=== PATIENT | male | born 1990 | race Caucasian/White ===

== ENCOUNTER 2017-02-20 08:23 | Inpatient (IN) | payer BC ==
[2017-02-20 08:42] VITALS: BMI 27.3
--- NOTE | 2017-02-20 11:30 | HP ---
COWS - Scale Resting Pulse: 1= [place] 81-100 Sweatin=Flushed/Facial Moisture Restless Observation: 3= Extraneous Movement Pupil Size: 1= Pupils >than Normal Bone or Joint Aches: 2= Severe Diffuse Aches Runny Nose/ Eye Tearin= Runny Nose/Eyes GI Upset > 30mins: 0= None Tremor Observation: 1= Tremor [place], Not Seen Yawning Observation: 1= 1-2x During Session Anxiety or Irritability: 2=Irritable/Anxious Goose Flesh Skin: 0=Smooth Skin COWS Score: 15 Admission ROS S - [facility] Chief Complaint: Withdrawal sx. Allergies/Adverse Reactions: Allergies Allergy/AdvReac Type Severity Reaction Status Date / Time No Known Allergies Allergy Verified 02/20/17 09:40 History of Present Illness: 27 y/o man with hx. of opioid dependence is admitted for detox.Pt. claims that he was a binge drinker but stopped after an episode of intoxication for which he was in the psychiatric unit at [facility]. He was sent to rehab at [facility] in [place], but did not complete. Exam Limitations: No Limitations - Ebola screening Have you traveled outside of the country in the last 21 days: No Have you had contact with anyone from an Ebola affected area: No Have you been sick,other than usual withdrawal symptoms: No Do you have a fever: No - Review of Systems Constitutional: Diaphoresis EENT: reports: Nose Congestion Respiratory: reports: No Symptoms reported Cardiac: reports: No Symptoms Reported GI: reports: No Symptoms Reported : reports: No Symptoms Reported Musculoskeletal: reports: Joint Pain, Muscle Pain Neuro: reports: Headache Endocrine: reports: No Symptoms Reported Hematology: reports: No Symptoms Reported Psychiatric: reports: No Sypmtoms Reported Other Systems: Reviewed and Negative Patient History - Patient Medical History Hx Anemia: No Hx Asthma: No Hx Chronic Obstructive Pulmonary Disease (COPD): No Hx Cancer: No Hx Cardiac Disorders: No Hx Congestive Heart Failure: No Hx Hypertension: No Hx Hypercholesterolemia: No Hx Pacemaker: No HX Cerebrovascular Accident: No Hx Seizures: No Hx Diabetes: No Hx Gastrointestinal Disorders: No Hx Liver Disease: No Hx Genitourinary Disorders: No Hx Sexually Transmitted Disorders: No Hx Renal Disease (ESRD): No Hx Thyroid Disease: No Hx Human Immunodeficiency Virus (HIV): No Hx Hepatitis C: No Hx Depression: No Hx Suicide Attempt: No Hx Bipolar Disorder: No Hx Schizophrenia: No Other Medical History: Anxiety disorder was on Zoloft - Patient Surgical History Past Surgical History: No Hx Neurologic Surgery: No Hx Cataract Extraction: No Hx Cardiac Surgery: No Hx Lung Surgery: No Hx Breast Surgery: No Hx Breast Biopsy: No Hx Abdominal Surgery: No Hx Appendectomy: No Hx Cholecystectomy: No Hx Genitourinary Surgery: No Hx Section: No Hx Orthopedic Surgery: No Anesthesia Reaction: No - PPD History Previous Implant?: Yes Documented Results: Negative w/o proof Implanted On Prior [facility] Admission?: No PPD to be Administered?: Yes - Smoking Cessation Smoking history: Current every day smoker Have you smoked in the past 12 months: Yes Aproximately how many cigarettes per day: 12 Hx Chewing Tobacco Use: No Initiated information on smoking cessation: Yes 'Breaking Loose' booklet given: 02/20/17 - Substance & Tx. History Hx Alcohol Use: No Hx Substance Use: Yes Substance Use Type: Opiates Hx Substance Use Treatment: No - Substances Abused Roxycodone Route: Oral Frequency: Daily Amount used: 4-6 tabs. (30 mg.) Age of first use: 26 Date of Last Use: 02/18/17 Family Disease History - Family Disease History Family Disease History: Diabetes: Grandparent (Breast,Alcohol), Heart Disease: Grandparent, [place]: Grandparent Admission Physical Exam [facility] - Vital Signs Vital Signs: Vital Signs - 24 hr 02/20/17 08:41 Temperature 97.9 F Pulse Rate 86 Respiratory 18 Rate Blood Pressure 146/76 - Physical General Appearance: Yes: Sweating, Anxious HEENTM: Yes: Within Normal Limits Respiratory: Yes: Chest Non-Tender, Lungs Clear, Normal Breath Sounds Neck: Yes: Supple Breast: Yes: Breast Exam Deferred Cardiology: Yes: Regular Rhythm, Regular Rate, S1, S2 Abdominal: Yes: Normal Bowel Sounds, Non Tender, Soft Genitourinary: Yes: Within Normal Limits Back: Yes: Within Normal Limits Musculoskeletal: Yes: Muscle Pain Extremities: Yes: Within Normal Limits Neurological: Yes: Fully Oriented, Alert Integumentary: Yes: Diaphoresis Lymphatic: Yes: Within Normal Limits - Diagnostic (1) Opioid dependence with withdrawal Current Visit: Yes Status: Acute Cleared for Admission [facility] - Detox or Rehab [facility] Level of Care: Medically Managed Detox Regimen/Protocol: Methadone BHS Breath Alcohol Content Breath Alcohol Content: 0 Urine Drug Screen - Results Drug Screen Negative: No Urine Drug Screen Results: OPI-Opiates, OXY-Oxycodone
[2017-02-20] MEDS ORDERED: IBUPROFEN 400 MG TABLET (FP) PO PRN (11:40)
[2017-02-20] MEDS ORDERED: MAGNESIUM CITRATE 300 ML BOTTLE PO PRN (11:40)
[2017-02-20] MEDS ORDERED: diphenhydrAMINE HCL 50 MG CAPSULE PO PRN (11:40)
[2017-02-20] MEDS ORDERED: NICOTINE POLACRILEX 2 MG GUM BC PRN (11:40)
[2017-02-20] MEDS ORDERED: P-EPHED 60MG/TRIPROLIDI 2.5MG TABLET PO PRN (11:40)
[2017-02-20] MEDS ORDERED: MAG HYDROX/AL HYDROX/SIMETH 30 ML UNIT-DOSE CUP PO PRN (11:40)
[2017-02-20] MEDS ORDERED: ACETAMINOPHEN 325 MG TABLET (FP) PO PRN (11:40)
[2017-02-20] MEDS ORDERED: guaiFENesin/D-METHORPHAN HB 10 ML UNIT-DOSE CUPS PO PRN (11:40)
[2017-02-20] MEDS ORDERED: LOPERAMIDE HCL 2 MG CAPSULE PO PRN (11:40)
[2017-02-20] MEDS ORDERED: MAGNESIUM HYDROX 2400MG/30ML ORAL SUSPENSION 30 ML CUP PO PRN (11:40)
[2017-02-20] MEDS ORDERED: MENTHOL/PHENOL 1 EACH UD MM PRN (11:40)
[2017-02-20] MEDS ORDERED: METHADONE HCL 10 MG TABLET (FOR DETOX USE ONLY) PO ONE ×2 (12:06→23:00)
[2017-02-20] MEDS: NICOTINE 21 MG/24 HOURS TOPICAL PATCH TD SCH (12:23)
[2017-02-20] MEDS: diazePAM 5 MG TABLET PO PRN ×3 (12:27→22:50)
--- NOTE | 2017-02-20 14:32 | EKG ---
Test Reason : Blood Pressure : / mmHG Vent. Rate : 080 BPM Atrial Rate : 080 BPM P-R Int : 122 ms QRS Dur : 086 ms QT Int : 382 ms P-R-T Axes : 022 053 029 degrees QTc Int : 440 ms NORMAL SINUS RHYTHM NORMAL ECG NO PREVIOUS ECGS AVAILABLE Confirmed by OSWALD RAYO MD ([id number]) on 02/20/2017 2:32:21 PM Referred By: Eduin Brown Confirmed By:OSWALD RAYO MD
[2017-02-20 20:27] LABS: URINE APPEARANCE CLEAR; URINE BILIRUBIN NEGATIVE (NEGATIVE); URINE BLOOD NEGATIVE (NEGATIVE); URINE COLOR YELLOW; URINE GLUCOSE (UA) NEGATIVE (NEGATIVE); URINE KETONE NEGATIVE (NEGATIVE); URINE LEUK ESTERASE NEGATIVE (NEGATIVE); URINE NITRITE NEGATIVE (NEGATIVE); URINE PROTEIN NEGATIVE (NEGATIVE); URINE UROBILINOGEN NEGATIVE E.U./dl (0.2-1.0)
[2017-02-20] MEDS: THIAMINE HCL 100 MG TABLET (FP) PO SCH (22:50)
[2017-02-21] MEDS: diazePAM 5 MG TABLET PO PRN ×5 (05:13→23:30)
[2017-02-21 09:43] LABS: MCH 29.9 pg (25.7-33.7); MCHC 34.2 g/dl (32.0-35.9); MEAN CELL VOLUME 87.3 fl (80-96); MEAN PLT VOLUME 9.1 fl (7.5-11.1); PLATELET COUNT 262 K/MM3 (134-434); RDW 12.6 % (11.9-15.9); WHITE BLOOD COUNT 11.7 K/mm3 (4.0-10.0)
[2017-02-21] MEDS ORDERED: METHADONE HCL 10 MG TABLET (FOR DETOX USE ONLY) PO ONE (10:00)
[2017-02-21] MEDS: NICOTINE 21 MG/24 HOURS TOPICAL PATCH TD SCH (10:46)
[2017-02-21] MEDS: PRENATAL VITAMINS W/ FOLIC ACID TABLET (FP) PO SCH (10:46)
--- NOTE | 2017-02-21 11:41 | PN ---
BHS COWS - Scale Resting Pulse: 1= [place] 81-100 Sweatin= Chills/Flushing Restless Observation: 3= Extraneous Movement Pupil Size: 2= Moderately Dilated Bone or Joint Aches: 4=Acute Joint/Muscle Pain Runny Nose/ Eye Tearin= Nasal Congestion GI Upset > 30mins: 1= Stomach Cramp Tremor Observation of Outstretched Hands: 2= Slight Tremor Visible Yawning Observation: 1= 1-2x During Session Anxiety or Irritability: 2=Irritable/Anxious Goose Flesh Skin: 0=Smooth Skin COWS Score: 18 BHS Progress Note (SOAP) Subjective: ANXIETY,SWEATS,BACK/LEG ACHES. Objective: 02/21/17 11:40 Vital Signs 02/21/17 02/21/17 06:29 10:07 Temperature 96.5 F L 96.5 F L Pulse Rate 85 80 Respiratory 18 18 Rate Blood Pressure 130/82 125/81 Laboratory Last Values WBC 11.7 K/mm3 (4.0-10.0) H 02/21/17 06:00 RBC 4.97 M/mm3 (4.00-5.60) 02/21/17 06:00 Hgb 14.8 GM/dL (11.7-16.9) 02/21/17 06:00 Hct 43.4 % (35.4-49) 02/21/17 06:00 MCV 87.3 fl (80-96) 02/21/17 06:00 MCHC 34.2 g/dl (32.0-35.9) 02/21/17 06:00 RDW 12.6 % (11.9-15.9) 02/21/17 06:00 Plt Count 262 K/MM3 (134-434) 02/21/17 06:00 MPV 9.1 fl (7.5-11.1) 02/21/17 06:00 Urine Color Yellow 02/20/17 13:00 Urine Appearance Clear 02/20/17 13:00 Urine pH 6.0 (5.0-8.0) 02/20/17 13:00 Ur Specific [place] 1.026 (1.001-1.035) 02/20/17 13:00 Urine Protein Negative (NEGATIVE) 02/20/17 13:00 Urine Glucose (UA) Negative (NEGATIVE) 02/20/17 13:00 Urine Ketones Negative (NEGATIVE) 02/20/17 13:00 Urine Blood Negative (NEGATIVE) 02/20/17 13:00 Urine Nitrite Negative (NEGATIVE) 02/20/17 13:00 Urine Bilirubin Negative (NEGATIVE) 02/20/17 13:00 Urine Urobilinogen Negative E.U./dl (0.2-1.0) 02/20/17 13:00 Ur Leukocyte Esterase Negative (NEGATIVE) 02/20/17 13:00 RPR Titer Nonreactive (NONREACTIVE) 02/21/17 06:00 Assessment: 02/21/17 11:40 WITHDRAWAL SX Plan: CONTINUE DETOX INCREASE PO FLUIDS
[2017-02-21 11:49] LABS: ANION GAP 10 (8-16); CO2 28 mmol/L (21-32)
[2017-02-21 11:59] LABS: ALK PHOS 93 U/L (45-117); BILIRUBIN,TOTAL 0.5 mg/dL (0.2-1.0); CREATININE 0.9 mg/dL (0.7-1.3); GLUCOSE,RANDOM 73 mg/dL (74-106); SGOT/AST 23 U/L (15-37); SGPT/ALT 77 U/L (12-78); TOT PROT 6.8 g/dl (6.4-8.2)
[2017-02-21] MEDS: CYCLOBENZAPRINE HCL 10 MG TABLET (FP) PO SCH ×2 (13:24→22:27)
[2017-02-21] MEDS: hydrOXYzine PAMOATE 50 MG CAPSULE (FP) PO PRN (13:25)
[2017-02-21 14:12] LABS: URINE APPEARANCE CLEAR; URINE BILIRUBIN NEGATIVE (NEGATIVE); URINE BLOOD NEGATIVE (NEGATIVE); URINE COLOR LTYELLOW; URINE GLUCOSE (UA) NEGATIVE (NEGATIVE); URINE KETONE NEGATIVE (NEGATIVE); URINE LEUK ESTERASE NEGATIVE (NEGATIVE); URINE NITRITE NEGATIVE (NEGATIVE); URINE PROTEIN NEGATIVE (NEGATIVE); URINE UROBILINOGEN NEGATIVE E.U./dl (0.2-1.0)
--- NOTE | 2017-02-21 14:30 | CONSULT ---
[facility] Psychiatric Consult - Data Date of interview: 02/21/17 Admission source: [facility] Identifying data: First admission [facility] for this 27 y/o male seeking detox treatment for opioid dependence.Patient is single without children ,domiciled,unemployed and supported by relatives. Substance Abuse History: - Smoking Cessation. Smoking history: Current every day smoker. Have you smoked in the past 12 months: Yes. Aproximately how many cigarettes per day: 12. Hx Chewing Tobacco Use: No. Initiated information on smoking cessation: Yes. 'Breaking Loose' booklet given: 02/20/17. - Substance & Tx. History. Hx Alcohol Use: No. Hx Substance Use: Yes. Substance Use Type : Opiates. Hx Substance Use Treatment: No. - Substances Abused. Roxycodone. Route: Oral. Frequency: Daily. Amount used: 4-6 tabs. (30 mg.). Age of first use: 26. Date of Last Use: 02/18/17. Confirmed by patient. Medical History: Patient reports good physical health. Psychiatric History: One psychiatric hospitalization at [facility] 2016) due to agitation/erratic behavior in a context of drug/alcohol intoxication (self- report).Patient states that he is unaware of any psychiatric diagnosis with the exception of substance abuse." They did not diagnose me with anything." He remembers,however,that he was prescribed zoloft (did not take as recommended) .No OPD care for months.Mr Rowland argues that his issue is chronic anxiety and his expectation is to be on a benzodiazepine (klonopin). Physical/Sexual Abuse/Trauma History: Patient denies. Additional Comment: Urine Drug Screen Results: OPI-Opiates, OXY-Oxycodone.Noted. Mental Status Exam - Mental Status Exam Alert and Oriented to: Time, Place, Person Cognitive Function: Good Patient Appearance: Well Groomed Mood: Hopeful, Euthymic Affect: Normal Range Patient Behavior: Appropriate, Cooperative Speech Pattern: Clear Voice Loudness: Normal Thought Process: Goal Oriented Thought Disorder: Not Present Hallucinations: Denies Suicidal Ideation: Denies Insight/Judgement: Poor Sleep: Poorly Appetite: Good Muscle strength/Tone: Normal Gait/Station: Normal Psychiatric Findings - Problem List ([place] 1, 2,3) (1) Opioid dependence with withdrawal Current Visit: Yes Status: Acute (2) Nicotine dependence Current Visit: Yes Status: Acute (3) Substance induced mood disorder Current Visit: Yes Status: Acute (4) Insomnia Current Visit: Yes Status: Acute - Initial Treatment Plan Initial Treatment Plan: Psychoeducation.Detoxification.Ambien 10 mg po hs prn.Patient made aware of risk for parasomnias.Observation.
[2017-02-21] MEDS: ZOLPIDEM TARTRATE 10 MG TABLET (PARK CARE ONLY) PO PRN (22:27)
[2017-02-21] MEDS: THIAMINE HCL 100 MG TABLET (FP) PO SCH (22:27)
[2017-02-22] MEDS: CYCLOBENZAPRINE HCL 10 MG TABLET (FP) PO SCH ×3 (05:20→22:32)
[2017-02-22] MEDS: diazePAM 5 MG TABLET PO PRN ×4 (05:20→19:54)
[2017-02-22] MEDS ORDERED: METHADONE HCL 5 MG TABLET (FOR DETOX USE ONLY) PO ONE (10:00)
[2017-02-22] MEDS: PRENATAL VITAMINS W/ FOLIC ACID TABLET (FP) PO SCH (10:35)
[2017-02-22] MEDS: NICOTINE 21 MG/24 HOURS TOPICAL PATCH TD SCH (10:35)
--- NOTE | 2017-02-22 14:26 | PN ---
BHS COWS - Scale Resting Pulse: 2= [place] 101-120 Sweatin=Flushed/Facial Moisture Restless Observation: 1= Difficult to Sit Still Pupil Size: 0= Normal to Room Light Bone or Joint Aches: 2= Severe Diffuse Aches Runny Nose/ Eye Tearin= Nasal Congestion GI Upset > 30mins: 0= None Tremor Observation of Outstretched Hands: 2= Slight Tremor Visible Yawning Observation: 1= 1-2x During Session Anxiety or Irritability: 2=Irritable/Anxious Goose Flesh Skin: 0=Smooth Skin COWS Score: 13 BHS Progress Note (SOAP) Subjective: Interrupted Sleep, Sweating, Tremors, Body aches Objective: PT. A & O X 3, OBSERVED AMBULATING ON UNIT. 02/22/17 14:24 Vital Signs Temperature 96.5 F L 02/22/17 13:24 Pulse Rate 108 H 02/22/17 13:24 Respiratory Rate 20 02/22/17 13:24 Blood Pressure 140/83 02/22/17 13:24 O2 Sat by Pulse Oximetry (%) Laboratory Last Values WBC 11.7 K/mm3 (4.0-10.0) H 02/21/17 06:00 RBC 4.97 M/mm3 (4.00-5.60) 02/21/17 06:00 Hgb 14.8 GM/dL (11.7-16.9) 02/21/17 06:00 Hct 43.4 % (35.4-49) 02/21/17 06:00 MCV 87.3 fl (80-96) 02/21/17 06:00 MCHC 34.2 g/dl (32.0-35.9) 02/21/17 06:00 RDW 12.6 % (11.9-15.9) 02/21/17 06:00 Plt Count 262 K/MM3 (134-434) 02/21/17 06:00 MPV 9.1 fl (7.5-11.1) 02/21/17 06:00 Sodium 144 mmol/L (136-145) 02/21/17 06:00 Potassium 3.6 mmol/L (3.5-5.1) 02/21/17 06:00 Chloride 106 mmol/L (98-107) 02/21/17 06:00 Carbon Dioxide 28 mmol/L (21-32) 02/21/17 06:00 Anion Gap 10 (8-16) 02/21/17 06:00 BUN 9 mg/dL (7-18) 02/21/17 06:00 Creatinine 0.9 mg/dL (0.7-1.3) 02/21/17 06:00 Creat Clearance w eGFR > 60 (>60) 02/21/17 06:00 Random Glucose 73 mg/dL (74-106) L 02/21/17 06:00 Calcium 9.0 mg/dL (8.5-10.1) 02/21/17 06:00 Total Bilirubin 0.5 mg/dL (0.2-1.0) 02/21/17 06:00 AST 23 U/L (15-37) 02/21/17 06:00 ALT 77 U/L (12-78) 02/21/17 06:00 Alkaline Phosphatase 93 U/L (45-117) 02/21/17 06:00 Total Protein 6.8 g/dl (6.4-8.2) 02/21/17 06:00 Albumin 4.0 g/dl (3.4-5.0) 02/21/17 06:00 Urine Color Ltyellow 02/21/17 12:30 Urine Appearance Clear 02/21/17 12:30 Urine pH 5.0 (5.0-8.0) 02/21/17 12:30 Ur Specific [place] 1.017 (1.001-1.035) 02/21/17 12:30 Urine Protein Negative (NEGATIVE) 02/21/17 12:30 Urine Glucose (UA) Negative (NEGATIVE) 02/21/17 12:30 Urine Ketones Negative (NEGATIVE) 02/21/17 12:30 Urine Blood Negative (NEGATIVE) 02/21/17 12:30 Urine Nitrite Negative (NEGATIVE) 02/21/17 12:30 Urine Bilirubin Negative (NEGATIVE) 02/21/17 12:30 Urine Urobilinogen Negative E.U./dl (0.2-1.0) 02/21/17 12:30 Ur Leukocyte Esterase Negative (NEGATIVE) 02/21/17 12:30 RPR Titer Nonreactive (NONREACTIVE) 02/21/17 06:00 LABS NOTED. Assessment: 02/22/17 14:24 WITHDRAWAL SYMPTOMS. Plan: CONTINUE DETOX. ADVISED PATIENT TO FOLLOW-UP WITH [facility] / REHAB MEDICAL PROVIDER AFTER DISCHARGER FROM DETOX FOR GENERAL MEDICAL ASSESSMENT AND FOR ABNORMAL ADMISSION LAB VALUES.
[2017-02-22] MEDS: THIAMINE HCL 100 MG TABLET (FP) PO SCH (22:31)
[2017-02-22] MEDS: ZOLPIDEM TARTRATE 10 MG TABLET (PARK CARE ONLY) PO PRN (22:32)
[2017-02-23] MEDS: diazePAM 5 MG TABLET PO PRN ×3 (00:15→10:43)
[2017-02-23] MEDS: CYCLOBENZAPRINE HCL 10 MG TABLET (FP) PO SCH ×3 (05:42→22:21)
[2017-02-23] MEDS ORDERED: METHADONE HCL 5 MG TABLET (FOR DETOX USE ONLY) PO ONE (10:00)
[2017-02-23] MEDS: PRENATAL VITAMINS W/ FOLIC ACID TABLET (FP) PO SCH (10:40)
[2017-02-23] MEDS: hydrOXYzine PAMOATE 50 MG CAPSULE (FP) PO PRN ×3 (11:01→19:30)
[2017-02-23] MEDS: NICOTINE 21 MG/24 HOURS TOPICAL PATCH TD SCH (12:38)
--- NOTE | 2017-02-23 15:23 | PN ---
BHS Progress Note (SOAP) Subjective: Anxious, restless, pain in shoulders and legs, interrupted sleep Objective: 02/23/17 15:22 Last Vital Signs Temp Pulse Resp BP Pulse Ox 97 F L 120 H 19 133/85 02/23/17 13:48 02/23/17 13:48 02/23/17 13:48 02/23/17 13:48 Laboratory Tests 02/20/17 02/21/17 02/21/17 13:00 06:00 06:00 WBC 11.7 H RBC 4.97 Hgb 14.8 Hct 43.4 MCV 87.3 MCHC 34.2 RDW 12.6 Plt Count 262 MPV 9.1 Sodium 144 Potassium 3.6 Chloride 106 Carbon Dioxide 28 Anion Gap 10 BUN 9 Creatinine 0.9 Creat Clearance w eGFR > 60 Random Glucose 73 L Calcium 9.0 Total Bilirubin 0.5 AST 23 ALT 77 Alkaline Phosphatase 93 Total Protein 6.8 Albumin 4.0 Urine Color Yellow Urine Appearance Clear Urine pH 6.0 Ur Specific [place] 1.026 Urine Protein Negative Urine Glucose (UA) Negative Urine Ketones Negative Urine Blood Negative Urine Nitrite Negative Urine Bilirubin Negative Urine Urobilinogen Negative Ur Leukocyte Esterase Negative RPR Titer 02/21/17 02/21/17 06:00 12:30 WBC RBC Hgb Hct MCV MCHC RDW Plt Count MPV Sodium Potassium Chloride Carbon Dioxide Anion Gap BUN Creatinine Creat Clearance w eGFR Random Glucose Calcium Total Bilirubin AST ALT Alkaline Phosphatase Total Protein Albumin Urine Color Ltyellow Urine Appearance Clear Urine pH 5.0 Ur Specific [place] 1.017 Urine Protein Negative Urine Glucose (UA) Negative Urine Ketones Negative Urine Blood Negative Urine Nitrite Negative Urine Bilirubin Negative Urine Urobilinogen Negative Ur Leukocyte Esterase Negative RPR Titer Nonreactive Labs noted Assessment: 02/23/17 15:23 Withdrawal symptoms Plan: Continue detox
[2017-02-23] MEDS: ZOLPIDEM TARTRATE 10 MG TABLET (PARK CARE ONLY) PO PRN (22:21)
[2017-02-23] MEDS: THIAMINE HCL 100 MG TABLET (FP) PO SCH (22:21)
[2017-02-24] MEDS: hydrOXYzine PAMOATE 50 MG CAPSULE (FP) PO PRN ×5 (00:54→22:25)
[2017-02-24] MEDS: CYCLOBENZAPRINE HCL 10 MG TABLET (FP) PO SCH ×3 (05:52→22:24)
[2017-02-24] MEDS ORDERED: METHADONE HCL 10 MG TABLET (FOR DETOX USE ONLY) PO ONE (10:00)
[2017-02-24] MEDS: PRENATAL VITAMINS W/ FOLIC ACID TABLET (FP) PO SCH (10:36)
[2017-02-24] MEDS: NICOTINE 21 MG/24 HOURS TOPICAL PATCH TD SCH (10:36)
--- NOTE | 2017-02-24 11:35 | PN ---
BHS Progress Note (SOAP) Subjective: Sweating,interrupted sleep,restless Objective: 02/24/17 11:33 Vital Signs - 8 hr 02/24/17 02/24/17 06:28 09:46 Temperature 98.1 F 96 F L Pulse Rate 114 H 109 H Respiratory 18 20 Rate Blood Pressure 126/80 148/91 Laboratory Tests 02/20/17 02/21/17 02/21/17 13:00 06:00 06:00 WBC 11.7 H RBC 4.97 Hgb 14.8 Hct 43.4 MCV 87.3 MCHC 34.2 RDW 12.6 Plt Count 262 MPV 9.1 Sodium 144 Potassium 3.6 Chloride 106 Carbon Dioxide 28 Anion Gap 10 BUN 9 Creatinine 0.9 Creat Clearance w eGFR > 60 Random Glucose 73 L Calcium 9.0 Total Bilirubin 0.5 AST 23 ALT 77 Alkaline Phosphatase 93 Total Protein 6.8 Albumin 4.0 Urine Color Yellow Urine Appearance Clear Urine pH 6.0 Ur Specific [place] 1.026 Urine Protein Negative Urine Glucose (UA) Negative Urine Ketones Negative Urine Blood Negative Urine Nitrite Negative Urine Bilirubin Negative Urine Urobilinogen Negative Ur Leukocyte Esterase Negative RPR Titer 02/21/17 02/21/17 06:00 12:30 WBC RBC Hgb Hct MCV MCHC RDW Plt Count MPV Sodium Potassium Chloride Carbon Dioxide Anion Gap BUN Creatinine Creat Clearance w eGFR Random Glucose Calcium Total Bilirubin AST ALT Alkaline Phosphatase Total Protein Albumin Urine Color Ltyellow Urine Appearance Clear Urine pH 5.0 Ur Specific [place] 1.017 Urine Protein Negative Urine Glucose (UA) Negative Urine Ketones Negative Urine Blood Negative Urine Nitrite Negative Urine Bilirubin Negative Urine Urobilinogen Negative Ur Leukocyte Esterase Negative RPR Titer Nonreactive labs noted Assessment: 02/24/17 11:34 Laboratory Last Values Withdrawal sx. Plan: Continue detox
[2017-02-24] MEDS ORDERED: ZOLPIDEM TARTRATE 5 MG TABLET PO PRN (18:57)
[2017-02-24] MEDS: THIAMINE HCL 100 MG TABLET (FP) PO SCH (22:24)
[2017-02-25] MEDS: CYCLOBENZAPRINE HCL 10 MG TABLET (FP) PO SCH (05:34)
[2017-02-25] MEDS ORDERED: METHADONE HCL 5 MG TABLET (FOR DETOX USE ONLY) PO ONE (06:00)
[2017-02-25 06:12] VITALS: BP 130/82; PULSE 111; TEMP 97.7
[2017-02-25] MEDS: hydrOXYzine PAMOATE 50 MG CAPSULE (FP) PO PRN (07:00)
--- NOTE | 2017-02-25 09:11 | DS ---
[facility] Detox Discharge Summary Admission Date: 02/20/17 Discharge Date: 02/25/17 - History Present History: Opioid Dependence Pertinent Past History: Insomnia - Physical Exam Results Vital Signs: Vital Signs Temperature 97.7 F 02/25/17 06:12 Pulse Rate 111 H 02/25/17 06:12 Respiratory Rate 18 02/25/17 06:12 Blood Pressure 130/82 02/25/17 06:12 O2 Sat by Pulse Oximetry (%) Pertinent Admission Physical Exam Findings: Withdrawal sx. Laboratory Last Values WBC 11.7 K/mm3 (4.0-10.0) H 02/21/17 06:00 RBC 4.97 M/mm3 (4.00-5.60) 02/21/17 06:00 Hgb 14.8 GM/dL (11.7-16.9) 02/21/17 06:00 Hct 43.4 % (35.4-49) 02/21/17 06:00 MCV 87.3 fl (80-96) 02/21/17 06:00 MCHC 34.2 g/dl (32.0-35.9) 02/21/17 06:00 RDW 12.6 % (11.9-15.9) 02/21/17 06:00 Plt Count 262 K/MM3 (134-434) 02/21/17 06:00 MPV 9.1 fl (7.5-11.1) 02/21/17 06:00 Sodium 144 mmol/L (136-145) 02/21/17 06:00 Potassium 3.6 mmol/L (3.5-5.1) 02/21/17 06:00 Chloride 106 mmol/L (98-107) 02/21/17 06:00 Carbon Dioxide 28 mmol/L (21-32) 02/21/17 06:00 Anion Gap 10 (8-16) 02/21/17 06:00 BUN 9 mg/dL (7-18) 02/21/17 06:00 Creatinine 0.9 mg/dL (0.7-1.3) 02/21/17 06:00 Creat Clearance w eGFR > 60 (>60) 02/21/17 06:00 Random Glucose 73 mg/dL (74-106) L 02/21/17 06:00 Calcium 9.0 mg/dL (8.5-10.1) 02/21/17 06:00 Total Bilirubin 0.5 mg/dL (0.2-1.0) 02/21/17 06:00 AST 23 U/L (15-37) 02/21/17 06:00 ALT 77 U/L (12-78) 02/21/17 06:00 Alkaline Phosphatase 93 U/L (45-117) 02/21/17 06:00 Total Protein 6.8 g/dl (6.4-8.2) 02/21/17 06:00 Albumin 4.0 g/dl (3.4-5.0) 02/21/17 06:00 Urine Color Ltyellow 02/21/17 12:30 Urine Appearance Clear 02/21/17 12:30 Urine pH 5.0 (5.0-8.0) 02/21/17 12:30 Ur Specific [place] 1.017 (1.001-1.035) 02/21/17 12:30 Urine Protein Negative (NEGATIVE) 02/21/17 12:30 Urine Glucose (UA) Negative (NEGATIVE) 02/21/17 12:30 Urine Ketones Negative (NEGATIVE) 02/21/17 12:30 Urine Blood Negative (NEGATIVE) 02/21/17 12:30 Urine Nitrite Negative (NEGATIVE) 02/21/17 12:30 Urine Bilirubin Negative (NEGATIVE) 02/21/17 12:30 Urine Urobilinogen Negative E.U./dl (0.2-1.0) 02/21/17 12:30 Ur Leukocyte Esterase Negative (NEGATIVE) 02/21/17 12:30 RPR Titer Nonreactive (NONREACTIVE) 02/21/17 06:00 labs noted - Treatment Hospital Course: Detox Protocol Followed, Detoxed Safely, Responded well, Discharged Condition Good, Rehab Referral Accepted Patient has Accepted a Rehab Referral to: [facility] - Medication Discharge Medications: Ambulatory Orders Sertraline HCl [Zoloft -] 100 mg PO DAILY 02/20/17 - Diagnosis (1) Opioid dependence with withdrawal Status: Acute (2) Insomnia Status: Acute (3) Nicotine dependence Status: Acute (4) Substance induced mood disorder Status: Acute - AMA Did Patient Leave Against Medical Advice: No
== END 2017-02-25 07:00 | disposition home or self-care (01) | DRG 897 ==
LOC: YASAS 08:23 → Y3N 11:17
PROVIDERS: ADMIT Internal Medicine; ATTEND Internal Medicine
PROC: HZ2ZZZZ Detoxification Services for Substance Abuse Treatment (ICD-10-PCS; principal; 2017-02-25)
DX: F11.23 Opioid dependence with withdrawal (principal); F17.210 Nicotine dependence, cigarettes, uncomplicated; F19.24 Other psychoactive substance dependence with psychoactive substance-induced mood disorder; G47.00 Insomnia, unspecified
CPT/HCPCS: 36415; 80053; 81003; 85027; 86593; 93005; 93010

== ENCOUNTER 2018-02-27 08:17 | Inpatient (IN) | payer OTHER ==
[2018-02-27 10:28] VITALS: BMI 25.9
--- NOTE | 2018-02-27 10:59 | HP ---
COWS - Scale Resting Pulse: 1= [place] 81-100 Sweatin= Beads of Sweat on Face Restless Observation: 1= Difficult to Sit Still Pupil Size: 0= Normal to Room Light Bone or Joint Aches: 2= Severe Diffuse Aches Runny Nose/ Eye Tearin= Runny Nose/Eyes GI Upset > 30mins: 2= Nausea/Diarrhea Tremor Observation: 2= Slight Tremor Visible Yawning Observation: 1= 1-2x During Session Anxiety or Irritability: 2=Irritable/Anxious Goose Flesh Skin: 0=Smooth Skin COWS Score: 16 Admission [facility] Chief Complaint: Pt presents with opiod withdrawal symptoms. Allergies/Adverse Reactions: Allergies Allergy/AdvReac Type Severity Reaction Status Date / Time No Known Allergies Allergy Verified 02/27/18 10:36 History of Present Illness: Patient presents with opiod withdrawal symptoms. Uses Roxanol orally/ intranasal. Last dose of Roxanol on 02/24/18. Pt began having withdrawal symptoms 2 days ago and smoke marajuana to help decrease anxiety/irritability. Has history of Detox at [facility] in 01/2017. Pt completed rehab and was sober x 6 months. Pt relapsed 3 months ago. Denies any suicidal attempts/ideation. Also denies history of seizures and overdose. Exam Limitations: No Limitations - Ebola screening Have you traveled outside of the country in the last 21 days: No Have you had contact with anyone from an Ebola affected area: No Have you been sick,other than usual withdrawal symptoms: No - Review of Systems Constitutional: Loss of Appetite, Night Sweats, Changes in sleep EENT: reports: Nose Congestion Respiratory: reports: No Symptoms reported Cardiac: reports: Chest Tightness GI: reports: Diarrhea, Nausea, Poor Fluid Intake, Abdominal cramping : reports: No Symptoms Reported Musculoskeletal: reports: Back Pain, Muscle Pain Integumentary: reports: Flushing, Sweating Neuro: reports: Headache, Tremors Endocrine: reports: Flushing Hematology: reports: No Symptoms Reported Psychiatric: reports: Orientated x3, Anxious, Depressed Patient History - Patient Medical History Hx Anemia: No Hx Asthma: No Hx Chronic Obstructive Pulmonary Disease (COPD): No Hx Cancer: No Hx Cardiac Disorders: No Hx Congestive Heart Failure: No Hx Hypertension: No Hx Hypercholesterolemia: No Hx Pacemaker: No HX Cerebrovascular Accident: No Hx Seizures: No Hx Dementia: No Hx Diabetes: No Hx Gastrointestinal Disorders: No Hx Liver Disease: No Hx Genitourinary Disorders: No Hx Sexually Transmitted Disorders: No Hx Renal Disease (ESRD): No Hx Thyroid Disease: No Hx Human Immunodeficiency Virus (HIV): No Hx Hepatitis C: No Hx Depression: Yes Hx Suicide Attempt: No (denies suicidal ideation) Hx Bipolar Disorder: No Hx Schizophrenia: No - Patient Surgical History Past Surgical History: No Hx Neurologic Surgery: No Hx Cataract Extraction: No Hx Cardiac Surgery: No Hx Lung Surgery: No Hx Breast Surgery: No Hx Breast Biopsy: No Hx Abdominal Surgery: No Hx Appendectomy: No Hx Cholecystectomy: No Hx Genitourinary Surgery: No Hx Section: No Hx Orthopedic Surgery: No Anesthesia Reaction: No - PPD History Previous Implant?: Yes Documented Results: Negative w/proof Implanted On Prior [facility] Admission?: Yes Date: 02/22/17 Results: 0 MM - Smoking Cessation Smoking history: Current every day smoker Have you smoked in the past 12 months: Yes Aproximately how many cigarettes per day: 12 Hx Chewing Tobacco Use: No Initiated information on smoking cessation: Yes 'Breaking Loose' booklet given: 02/27/18 - Substance & Tx. History Hx Alcohol Use: Yes (social on weekends) Hx Substance Use: Yes Substance Use Type: Marijuana, Opiates Hx Substance Use Treatment: Yes - Substances Abused Marijuana/Hashish Route: Smoking Frequency: 1-3 times last 30 days Amount used: 1 JOINT Age of first use: 20 Date of Last Use: 02/26/18 ROXYCODONE Route: Oral Frequency: Daily Amount used: 4 (30MG PILLS) Age of first use: 27 Date of Last Use: 02/25/18 Family Disease History - Family Disease History Family Disease History: Diabetes: Grandparent (Breast,Alcohol), Heart Disease: Grandparent, CA: Grandparent Admission Physical Exam BHS - Vital Signs Vital Signs: Vital Signs - 24 hr 02/27/18 10:24 Temperature 98.7 F Pulse Rate 89 Respiratory 20 Rate Blood Pressure 111/70 - Physical General Appearance: Yes: Mild Distress, Tremorous, Irritable, Sweating, Anxious HEENTM: Yes: EOMI, Hearing grossly Normal, Normal ENT Inspection, Normocephalic , Normal Voice, DAIANA, Nasal Congestion Respiratory: Yes: Within Normal Limits, Chest Non-Tender, Lungs Clear, Normal Breath Sounds, No Respiratory Distress Neck: Yes: Within Normal Limits, No masses,lesions,Nodules, Supple Breast: Yes: Breast Exam Deferred Cardiology: Yes: Within Normal Limits, Regular Rhythm, Regular Rate, S1, S2 Abdominal: Yes: Within Normal Limits, Normal Bowel Sounds, Non Tender, Flat, Soft Genitourinary: Yes: Within Normal Limits Back: Yes: Within Normal Limits, Muscle Spasm Musculoskeletal: Yes: Gait Steady, Back pain, Muscle Pain Extremities: Yes: Within Normal Limits, Normal Inspection 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 NML intact, Fully Oriented, Alert, Depressed Affect Integumentary: Yes: Moist Lymphatic: Yes: Within Normal Limits - Diagnostic (1) Depressed affect Current Visit: Yes Status: Acute (2) Anxiety Current Visit: Yes Status: Acute (3) Marijuana use Current Visit: Yes Status: Acute (4) Opioid dependence with withdrawal Current Visit: Yes Status: Acute (5) Nicotine dependence Current Visit: Yes Status: Acute Qualifiers: Substance use status: unspecified nicotine-induced disorder Cleared for Admission [facility] - Detox or Rehab [facility] Level of Care: Medically Managed Detox Regimen/Protocol: Methadone [facility] Breath Alcohol Content Breath Alcohol Content: 0 Urine Drug Screen - Results Drug Screen Negative: No Urine Drug Screen Results: THC-Marijuana, OXY-Oxycodone Inpatient Rehab Admission - Initial Determination Are CD services needed?: Yes Free of communicable disease: Yes Not in need of hospitalization: Yes - Rehab Admission Criteria Previous failed treatment: Yes Poor recovery environment: Yes Comorbidities: Yes Lacks judgement: Yes
[2018-02-27] MEDS ORDERED: LOPERAMIDE HCL 2 MG CAPSULE PO PRN (11:02)
[2018-02-27] MEDS ORDERED: MAGNESIUM CITRATE 300 ML BOTTLE PO PRN (11:02)
[2018-02-27] MEDS ORDERED: NICOTINE POLACRILEX 2 MG GUM BC PRN (11:02)
[2018-02-27] MEDS ORDERED: P-EPHED 60MG/TRIPROLIDI 2.5MG TABLET PO PRN (11:02)
[2018-02-27] MEDS ORDERED: guaiFENesin/D-METHORPHAN HB 10 ML UNIT-DOSE CUPS PO PRN (11:02)
[2018-02-27] MEDS ORDERED: MAGNESIUM HYDROX 2400MG/30ML ORAL SUSPENSION 30 ML CUP PO PRN (11:02)
[2018-02-27] MEDS ORDERED: MAG HYDROX/AL HYDROX/SIMETH 30 ML UNIT-DOSE CUP PO PRN (11:02)
[2018-02-27] MEDS ORDERED: ACETAMINOPHEN 325 MG TABLET (FP) PO PRN (11:02)
[2018-02-27] MEDS ORDERED: MENTHOL/PHENOL 1 EACH UD MM PRN (11:02)
[2018-02-27] MEDS ORDERED: METHADONE HCL 10 MG TABLET (FOR DETOX USE ONLY) PO ONE ×2 (12:55→23:00)
[2018-02-27] MEDS: diazePAM 5 MG TABLET PO PRN ×3 (14:55→23:08)
[2018-02-27] MEDS: hydrOXYzine PAMOATE 50 MG CAPSULE (FP) PO PRN (16:33)
[2018-02-27] MEDS: IBUPROFEN 400 MG TABLET (FP) PO PRN (16:33)
--- NOTE | 2018-02-27 16:38 | CONSULT ---
[facility] Psychiatric Consult - Data Date of interview: 02/27/18 Admission source: [facility] Identifying data: Pt. is a 28 year old single male, without kids, employed at the [employer], and currently living with grandmother. This is patient' s first admission to [facility]. Pt. admitted to opioid dependence. Substance Abuse History: Following information confirmed with Mr. Rowland: Smoking Cessation. Smoking history: Current every day smoker. Have you smoked in the past 12 months: Yes. Aproximately how many cigarettes per day: 12. Hx Chewing Tobacco Use: No. Initiated information on smoking cessation: Yes. ' Breaking Loose' booklet given: 02/27/18. - Substance & Tx. History. Hx Alcohol Use: Yes (social on weekends). Hx Substance Use: Yes. Substance Use Type: Marijuana, Opiates. Hx Substance Use Treatment: Yes. - Substances Abused. Marijuana/Hashish. Route: Smoking. Frequency: 1-3 times last 30 days. Amount used: 1 JOINT. Age of first use: 20. Date of Last Use: . ROXYCODONE. Route: Oral. Frequency: Daily. Amount used: 4 (30MG PILLS ). Age of first use: 27. Date of Last Use: 02/25/18 Medical History: Denies. Psychiatric History: Patient's first contact with a psychiatrist was in 2014, was diagnosed with anxiety disorder and prescribed prozac and klonopin. Pt. was nonadherent to prozac after abusing the klonopin. Approximately 3 months after his first psychiatric contact patient was then admitted to [facility] psychiatric unit for exhibiting bizarre behavior which patient states was due to alcohol intoxication. In November of 2017 patient was receiving outpatient rehab psychiatric care from [facility] and was prescribed Zoloft 100mg and Seroquel 25TID. Pt. was nonadherent after discharge due to relapse. Pt. denies h /o suicide attempt. Pt. currently denies suicidal and homicidal ideation. Physical/Sexual Abuse/Trauma History: Denies. Mental Status Exam - Mental Status Exam Alert and Oriented to: Time, Place, Person Cognitive Function: Good Patient Appearance: Well Groomed Mood: Euthymic Affect: Mood Congruent Patient Behavior: Appropriate, Cooperative Speech Pattern: Appropriate Voice Loudness: Normal Thought Process: Goal Oriented Thought Disorder: Not Present Hallucinations: Denies Suicidal Ideation: Denies Homicidal Ideation: Denies Insight/Judgement: Poor Sleep: Poorly Appetite: Fair Muscle strength/Tone: Normal Gait/Station: Normal Psychiatric Findings - Problem List ([place] 1, 2,3) (1) Nicotine dependence Current Visit: Yes Status: Acute Qualifiers: Substance use status: unspecified nicotine-induced disorder (2) Opioid dependence with withdrawal Current Visit: Yes Status: Acute (3) Insomnia Current Visit: Yes Status: Acute (4) Substance induced mood disorder Current Visit: Yes Status: Acute - Initial Treatment Plan Initial Treatment Plan: Psychoeducation provided. Detoxification provided. Zoloft 50mg qhs + Seroquel 50mg qhs ordered. Benefits and side effects discussed. Verbal consent given. Will continue to monitor.
[2018-02-27] MEDS: SERTRALINE HCL 50 MG TABLET (FP) PO SCH (22:15)
[2018-02-27] MEDS: THIAMINE HCL 100 MG TABLET (FP) PO SCH (22:15)
[2018-02-27] MEDS: QUEtiapine FUMARATE 50 MG TABLET PO SCH (22:15)
[2018-02-27] MEDS: MELATONIN 5 MG TABLETS PO PRN (22:15)
[2018-02-28] MEDS ORDERED: METHADONE HCL 10 MG TABLET (FOR DETOX USE ONLY) PO ONE (10:00)
[2018-02-28] MEDS: PRENATAL VITAMINS W/ FOLIC ACID TABLET (FP) PO SCH (10:15)
[2018-02-28] MEDS: NICOTINE 21 MG/24 HOURS TOPICAL PATCH TD SCH (10:16)
[2018-02-28] MEDS: hydrOXYzine PAMOATE 50 MG CAPSULE (FP) PO PRN ×2 (10:17→14:30)
[2018-02-28] MEDS: diazePAM 5 MG TABLET PO PRN ×4 (10:20→22:11)
--- NOTE | 2018-02-28 10:39 | EKG ---
Test Reason : Blood Pressure : / mmHG Vent. Rate : 093 BPM Atrial Rate : 093 BPM P-R Int : 122 ms QRS Dur : 080 ms QT Int : 370 ms P-R-T Axes : 025 054 040 degrees QTc Int : 460 ms NORMAL SINUS RHYTHM NONSPECIFIC T WAVE ABNORMALITY PROLONGED QT ABNORMAL ECG WHEN COMPARED WITH ECG OF 20-FEB-2017 11:32, NONSPECIFIC T WAVE ABNORMALITY NOW EVIDENT IN LATERAL LEADS Confirmed by LOULOU SHORT, SUJIT ([id number]) on 02/28/2018 10:38:52 AM Referred By: Confirmed By:SUJIT JAMIL MD
[2018-02-28 11:18] LABS: URINE APPEARANCE CLEAR; URINE BILIRUBIN NEGATIVE (<2.0 mg/dL); URINE BLOOD NEGATIVE (NEGATIVE); URINE COLOR YELLOW; URINE GLUCOSE (UA) NEGATIVE (NEGATIVE); URINE KETONE NEGATIVE (NEGATIVE); URINE LEUK ESTERASE NEGATIVE (NEGATIVE); URINE NITRITE NEGATIVE (NEGATIVE); URINE PROTEIN NEGATIVE (NEGATIVE)
[2018-02-28 11:18] LABS: HEMATOCRIT 46.9 % (35.4-49); HEMOGLOBIN 16.4 GM/dL (11.7-16.9); MCH 30.2 pg (25.7-33.7); MCHC 34.9 g/dl (32.0-35.9); MEAN CELL VOLUME 86.8 fl (80-96); MEAN PLT VOLUME 8.6 fl (7.5-11.1); PLATELET COUNT 298 K/MM3 (134-434); RBC 5.41 M/mm3 (4.00-5.60); WHITE BLOOD COUNT 6.9 K/mm3 (4.0-10.0)
[2018-02-28 11:33] LABS: CHLORIDE 103 mmol/L (98-107); POTASSIUM 4.4 mmol/L (3.5-5.1); SODIUM 139 mmol/L (136-145)
[2018-02-28 11:55] LABS: ALBUMIN 4.4 g/dl (3.4-5.0); ANION GAP 8 (8-16); BILIRUBIN,TOTAL 0.8 mg/dL (0.2-1.0); BLOOD UREA NITROGEN 9 mg/dL (7-18); CALCIUM 9.7 mg/dL (8.5-10.1); CO2 28 mmol/L (21-32); GLUCOSE,RANDOM 126 mg/dL (74-106); SGOT/AST 16 U/L (15-37); SGPT/ALT 41 U/L (12-78); TOT PROT 7.7 g/dl (6.4-8.2)
[2018-02-28 12:43] LABS: SICKLE CELL SCREEN NEGATIVE (NEGATIVE)
--- NOTE | 2018-02-28 12:56 | PN ---
BHS COWS - Scale Resting Pulse: 0= [place] 80 or Below Sweatin=Flushed/Facial Moisture Restless Observation: 1= Difficult to Sit Still Pupil Size: 0= Normal to Room Light Bone or Joint Aches: 2= Severe Diffuse Aches Runny Nose/ Eye Tearin= Nasal Congestion GI Upset > 30mins: 2= Nausea/Diarrhea Tremor Observation of Outstretched Hands: 2= Slight Tremor Visible Yawning Observation: 1= 1-2x During Session Anxiety or Irritability: 1=Feels Anxious/Irritable Goose Flesh Skin: 3=Piloerection COWS Score: 15 BHS Progress Note (SOAP) Subjective: Tremors, sweats, irritability, sleep interruptions Objective: 02/28/18 12:55 Vital Signs 02/28/18 02/28/18 06:00 10:00 Temperature 97.5 F L 96.4 F L Pulse Rate 68 72 Respiratory 18 18 Rate Blood Pressure 135/77 140/78 Laboratory Last Values WBC 6.9 K/mm3 (4.0-10.0) D 02/28/18 06:00 RBC 5.41 M/mm3 (4.00-5.60) 02/28/18 06:00 Hgb 16.4 GM/dL (11.7-16.9) D 02/28/18 06:00 Hct 46.9 % (35.4-49) 02/28/18 06:00 MCV 86.8 fl (80-96) 02/28/18 06:00 MCH 30.2 pg (25.7-33.7) 02/28/18 06:00 MCHC 34.9 g/dl (32.0-35.9) 02/28/18 06:00 RDW 13.0 % (11.9-15.9) 02/28/18 06:00 Plt Count 298 K/MM3 (134-434) 02/28/18 06:00 MPV 8.6 fl (7.5-11.1) 02/28/18 06:00 Sickle Cell Screen Negative (NEGATIVE) 02/28/18 06:00 Sodium 139 mmol/L (136-145) 02/28/18 06:00 Potassium 4.4 mmol/L (3.5-5.1) D 02/28/18 06:00 Chloride 103 mmol/L (98-107) 02/28/18 06:00 Carbon Dioxide 28 mmol/L (21-32) 02/28/18 06:00 Anion Gap 8 (8-16) 02/28/18 06:00 BUN 9 mg/dL (7-18) 02/28/18 06:00 Creatinine 1.0 mg/dL (0.7-1.3) 02/28/18 06:00 Creat Clearance w eGFR > 60 (>60) 02/28/18 06:00 Random Glucose 126 mg/dL (74-106) H D 02/28/18 06:00 Calcium 9.7 mg/dL (8.5-10.1) 02/28/18 06:00 Total Bilirubin 0.8 mg/dL (0.2-1.0) D 02/28/18 06:00 AST 16 U/L (15-37) D 02/28/18 06:00 ALT 41 U/L (12-78) D 02/28/18 06:00 Total Protein 7.7 g/dl (6.4-8.2) 02/28/18 06:00 Albumin 4.4 g/dl (3.4-5.0) 02/28/18 06:00 Urine Color Yellow 02/28/18 08:00 Urine Appearance Clear 02/28/18 08:00 Urine pH 6.0 (5.0-8.0) 02/28/18 08:00 Ur Specific [place] 1.030 (1.001-1.035) 02/28/18 08:00 Urine Protein Negative (NEGATIVE) 02/28/18 08:00 Urine Glucose (UA) Negative (NEGATIVE) 02/28/18 08:00 Urine Ketones Negative (NEGATIVE) 02/28/18 08:00 Urine Blood Negative (NEGATIVE) 02/28/18 08:00 Urine Nitrite Negative (NEGATIVE) 02/28/18 08:00 Urine Bilirubin Negative (<2.0 mg/dL) 02/28/18 08:00 Urine Urobilinogen 2.0 mg/dL (0.2-1.0) 02/28/18 08:00 Ur Leukocyte Esterase Negative (NEGATIVE) 02/28/18 08:00 Labs noted Assessment: 02/28/18 12:56 Withdrawal sx Plan: Continue detox
[2018-02-28 15:20] LABS: ALK PHOS 116 U/L (45-117)
[2018-02-28] MEDS: SERTRALINE HCL 50 MG TABLET (FP) PO SCH (22:10)
[2018-02-28] MEDS: QUEtiapine FUMARATE 50 MG TABLET PO SCH (22:10)
[2018-02-28] MEDS: THIAMINE HCL 100 MG TABLET (FP) PO SCH (22:11)
[2018-02-28] MEDS: MELATONIN 5 MG TABLETS PO PRN (23:16)
[2018-03-01] MEDS: diazePAM 5 MG TABLET PO PRN ×5 (03:40→22:13)
[2018-03-01] MEDS: hydrOXYzine PAMOATE 50 MG CAPSULE (FP) PO PRN ×4 (07:42→20:09)
[2018-03-01] MEDS ORDERED: METHADONE HCL 5 MG TABLET (FOR DETOX USE ONLY) PO ONE (10:00)
[2018-03-01] MEDS: PRENATAL VITAMINS W/ FOLIC ACID TABLET (FP) PO SCH (10:15)
[2018-03-01] MEDS: NICOTINE 21 MG/24 HOURS TOPICAL PATCH TD SCH (10:15)
--- NOTE | 2018-03-01 11:45 | PN ---
BHS COWS - Scale Resting Pulse: 0= [place] 80 or Below Sweatin= Chills/Flushing Restless Observation: 1= Difficult to Sit Still Pupil Size: 1= Pupils >than Normal Bone or Joint Aches: 2= Severe Diffuse Aches Runny Nose/ Eye Tearin= Runny Nose/Eyes GI Upset > 30mins: 2= Nausea/Diarrhea Tremor Observation of Outstretched Hands: 2= Slight Tremor Visible Yawning Observation: 2= >3x During Session Anxiety or Irritability: 1=Feels Anxious/Irritable Goose Flesh Skin: 0=Smooth Skin COWS Score: 14 BHS Progress Note (SOAP) Subjective: sweat restlessness anxiety mild tremor poor sleep joint ache running nose Objective: 03/01/18 11:45 Vital Signs Temperature 96.4 F L 03/01/18 10:00 Pulse Rate 78 03/01/18 10:00 Respiratory Rate 18 03/01/18 10:00 Blood Pressure 137/66 03/01/18 10:00 O2 Sat by Pulse Oximetry (%) Laboratory Last Values WBC 6.9 K/mm3 (4.0-10.0) D 02/28/18 06:00 RBC 5.41 M/mm3 (4.00-5.60) 02/28/18 06:00 Hgb 16.4 GM/dL (11.7-16.9) D 02/28/18 06:00 Hct 46.9 % (35.4-49) 02/28/18 06:00 MCV 86.8 fl (80-96) 02/28/18 06:00 MCH 30.2 pg (25.7-33.7) 02/28/18 06:00 MCHC 34.9 g/dl (32.0-35.9) 02/28/18 06:00 RDW 13.0 % (11.9-15.9) 02/28/18 06:00 Plt Count 298 K/MM3 (134-434) 02/28/18 06:00 MPV 8.6 fl (7.5-11.1) 02/28/18 06:00 Sickle Cell Screen Negative (NEGATIVE) 02/28/18 06:00 Sodium 139 mmol/L (136-145) 02/28/18 06:00 Potassium 4.4 mmol/L (3.5-5.1) D 02/28/18 06:00 Chloride 103 mmol/L (98-107) 02/28/18 06:00 Carbon Dioxide 28 mmol/L (21-32) 02/28/18 06:00 Anion Gap 8 (8-16) 02/28/18 06:00 BUN 9 mg/dL (7-18) 02/28/18 06:00 Creatinine 1.0 mg/dL (0.7-1.3) 02/28/18 06:00 Creat Clearance w eGFR > 60 (>60) 02/28/18 06:00 Random Glucose 126 mg/dL (74-106) H D 02/28/18 06:00 Calcium 9.7 mg/dL (8.5-10.1) 02/28/18 06:00 Total Bilirubin 0.8 mg/dL (0.2-1.0) D 02/28/18 06:00 AST 16 U/L (15-37) D 02/28/18 06:00 ALT 41 U/L (12-78) D 02/28/18 06:00 Alkaline Phosphatase 116 U/L (45-117) D 02/28/18 06:00 Total Protein 7.7 g/dl (6.4-8.2) 02/28/18 06:00 Albumin 4.4 g/dl (3.4-5.0) 02/28/18 06:00 Urine Color Yellow 02/28/18 08:00 Urine Appearance Clear 02/28/18 08:00 Urine pH 6.0 (5.0-8.0) 02/28/18 08:00 Ur Specific [place] 1.030 (1.001-1.035) 02/28/18 08:00 Urine Protein Negative (NEGATIVE) 02/28/18 08:00 Urine Glucose (UA) Negative (NEGATIVE) 02/28/18 08:00 Urine Ketones Negative (NEGATIVE) 02/28/18 08:00 Urine Blood Negative (NEGATIVE) 02/28/18 08:00 Urine Nitrite Negative (NEGATIVE) 02/28/18 08:00 Urine Bilirubin Negative (<2.0 mg/dL) 02/28/18 08:00 Urine Urobilinogen 2.0 mg/dL (0.2-1.0) 02/28/18 08:00 Ur Leukocyte Esterase Negative (NEGATIVE) 02/28/18 08:00 RPR Titer Nonreactive (NONREACTIVE) 02/28/18 06:00 lab noted Assessment: 03/01/18 11:45 withdrawal sx Plan: continue detox
[2018-03-01] MEDS: SERTRALINE HCL 50 MG TABLET (FP) PO SCH (22:13)
[2018-03-01] MEDS: QUEtiapine FUMARATE 50 MG TABLET PO SCH (22:13)
[2018-03-01] MEDS: THIAMINE HCL 100 MG TABLET (FP) PO SCH (22:13)
[2018-03-01] MEDS: MELATONIN 5 MG TABLETS PO PRN (22:13)
[2018-03-02] MEDS: hydrOXYzine PAMOATE 50 MG CAPSULE (FP) PO PRN ×3 (00:06→20:44)
[2018-03-02] MEDS: diazePAM 5 MG TABLET PO PRN ×2 (05:13→10:14)
[2018-03-02] MEDS ORDERED: METHADONE HCL 5 MG TABLET (FOR DETOX USE ONLY) PO ONE (10:00)
[2018-03-02] MEDS: PRENATAL VITAMINS W/ FOLIC ACID TABLET (FP) PO SCH (10:14)
[2018-03-02] MEDS: NICOTINE 21 MG/24 HOURS TOPICAL PATCH TD SCH (10:15)
--- NOTE | 2018-03-02 10:44 | PN ---
BHS Progress Note (SOAP) Subjective: joint pain body ache mild headache Objective: 03/02/18 10:54 Vital Signs Temperature 98.2 F 03/02/18 10:06 Pulse Rate 79 03/02/18 10:06 Respiratory Rate 20 03/02/18 10:06 Blood Pressure 143/78 03/02/18 10:06 O2 Sat by Pulse Oximetry (%) Laboratory Last Values WBC 6.9 K/mm3 (4.0-10.0) D 02/28/18 06:00 RBC 5.41 M/mm3 (4.00-5.60) 02/28/18 06:00 Hgb 16.4 GM/dL (11.7-16.9) D 02/28/18 06:00 Hct 46.9 % (35.4-49) 02/28/18 06:00 MCV 86.8 fl (80-96) 02/28/18 06:00 MCH 30.2 pg (25.7-33.7) 02/28/18 06:00 MCHC 34.9 g/dl (32.0-35.9) 02/28/18 06:00 RDW 13.0 % (11.9-15.9) 02/28/18 06:00 Plt Count 298 K/MM3 (134-434) 02/28/18 06:00 MPV 8.6 fl (7.5-11.1) 02/28/18 06:00 Sickle Cell Screen Negative (NEGATIVE) 02/28/18 06:00 Sodium 139 mmol/L (136-145) 02/28/18 06:00 Potassium 4.4 mmol/L (3.5-5.1) D 02/28/18 06:00 Chloride 103 mmol/L (98-107) 02/28/18 06:00 Carbon Dioxide 28 mmol/L (21-32) 02/28/18 06:00 Anion Gap 8 (8-16) 02/28/18 06:00 BUN 9 mg/dL (7-18) 02/28/18 06:00 Creatinine 1.0 mg/dL (0.7-1.3) 02/28/18 06:00 Creat Clearance w eGFR > 60 (>60) 02/28/18 06:00 Random Glucose 126 mg/dL (74-106) H D 02/28/18 06:00 Calcium 9.7 mg/dL (8.5-10.1) 02/28/18 06:00 Total Bilirubin 0.8 mg/dL (0.2-1.0) D 02/28/18 06:00 AST 16 U/L (15-37) D 02/28/18 06:00 ALT 41 U/L (12-78) D 02/28/18 06:00 Alkaline Phosphatase 116 U/L (45-117) D 02/28/18 06:00 Total Protein 7.7 g/dl (6.4-8.2) 02/28/18 06:00 Albumin 4.4 g/dl (3.4-5.0) 02/28/18 06:00 Urine Color Yellow 02/28/18 08:00 Urine Appearance Clear 02/28/18 08:00 Urine pH 6.0 (5.0-8.0) 02/28/18 08:00 Ur Specific [place] 1.030 (1.001-1.035) 02/28/18 08:00 Urine Protein Negative (NEGATIVE) 02/28/18 08:00 Urine Glucose (UA) Negative (NEGATIVE) 02/28/18 08:00 Urine Ketones Negative (NEGATIVE) 02/28/18 08:00 Urine Blood Negative (NEGATIVE) 02/28/18 08:00 Urine Nitrite Negative (NEGATIVE) 02/28/18 08:00 Urine Bilirubin Negative (<2.0 mg/dL) 02/28/18 08:00 Urine Urobilinogen 2.0 mg/dL (0.2-1.0) 02/28/18 08:00 Ur Leukocyte Esterase Negative (NEGATIVE) 02/28/18 08:00 RPR Titer Nonreactive (NONREACTIVE) 02/28/18 06:00 lab noted Assessment: withdrawal sx Plan: continue detox
[2018-03-02] MEDS ORDERED: BACLOFEN 10 MG TABLET (FP) PO ONE (12:45)
[2018-03-02] MEDS ORDERED: HALOPERIDOL 5 MG TABLET (FP) PO STA (13:29)
[2018-03-02] MEDS ORDERED: HALOPERIDOL 1 MG TABLET (FP) PO ONE (13:30)
[2018-03-02] MEDS ORDERED: HALOPERIDOL 5 MG TABLET (FP) PO PRN (13:31)
--- NOTE | 2018-03-02 13:35 | PN ---
Psychiatric Progress Note Vital Signs: Vital Signs Period Temp Pulse Resp BP Sys/Perez Pulse Ox Last 24 Hr 97.3 F-98.2 F 78-97 18-20 119-156/66-92 Date of Session: 03/02/18 Chief Complaint:: Anxiety, Agitation HPI: As per nursing reports patients complanes for anxietya ndagitation, panic attacks and irritability, denies suicidal, homicidal ideation Current Medications: Active Medications Generic Name Dose Route Start Last Admin Trade Name Freq PRN Reason Stop Dose Admin Acetaminophen 650 mg 02/27/18 11:02 Tylenol - PO Q4H PRN FEVER Al Hydroxide/Mg Hydroxide 30 ml 02/27/18 11:02 03/01/18 14:51 Mylanta Oral Suspension - PO 30 ml Q6H PRN Administration DYSPEPSIA Baclofen 10 mg 03/02/18 12:45 Lioresal - PO 03/02/18 12:46 ONCE ONE Diphenhydramine HCl 50 mg 03/02/18 13:29 Benadryl - PO 03/02/18 13:30 ONCE STA Eucalyptus/Menthol/Phenol/Sorbitol 1 each 02/27/18 11:02 Cepastat Lozenge - MM Q4H PRN SORE THROAT Guaifenesin 10 ml 02/27/18 11:02 Robitussin Dm - PO Q6H PRN COUGH Haloperidol 1 mg 03/02/18 13:30 Haldol - PO 03/02/18 13:31 ONCE ONE Haloperidol 5 mg 03/02/18 13:31 Haldol - PO Q4HWA PRN AGITATION Hydroxyzine Pamoate 50 mg 02/27/18 11:02 03/02/18 12:00 Vistaril - PO 50 mg Q4H PRN Administration AGITATION Ibuprofen 400 mg 02/27/18 11:02 02/27/18 16:33 Motrin - PO 400 mg Q6H PRN Administration PAIN LEVEL 4-6 Loperamide HCl 4 mg 02/27/18 11:02 Imodium - PO Q6H PRN DIARRHEA Magnesium Citrate 300 ml 02/27/18 11:02 Citroma - PO Q48H PRN CONSTIPATION Magnesium Hydroxide 30 ml 02/27/18 11:02 Milk Of Magnesia - PO DAILY PRN CONSTIPATION Melatonin 5 mg 02/27/18 22:00 03/01/18 22:13 Melatonin PO 5 mg HS PRN Administration INSOMNIA Methadone HCl 5 mg 03/04/18 06:00 Dolophine - PO 03/04/18 06:01 ONCE@0600 ONE Methadone HCl 10 mg 03/03/18 10:00 Dolophine - PO 03/03/18 10:01 ONCE ONE Nicotine 21 mg 02/28/18 10:00 03/02/18 10:15 Nicoderm Patch - TD Not Given DAILY SUKHJINDER Nicotine Polacrilex 2 mg 02/27/18 11:02 Nicorette Gum - BC Q2H PRN NICOTINE REPLACEMENT RX Multivit/Folic Acid/Iron 1 tab 02/28/18 10:00 03/02/18 10:14 Vitamins (Sjr) - PO 1 tab DAILY SUKHJINDER Administration Pseudoephedrine/Triprolidine 1 combo 02/27/18 11:02 Actifed - PO TID PRN NASAL CONGESTION Quetiapine Fumarate 50 mg 02/27/18 22:00 03/01/18 22:13 Seroquel - PO 50 mg HS SUKHJINDER Administration Sertraline HCl 50 mg 02/27/18 22:00 03/01/18 22:13 Zoloft - PO 50 mg HS SUKHJINDER Administration Thiamine HCl 100 mg 02/27/18 22:00 03/01/18 22:13 Vitamin B1 - PO 100 mg HS SUKHJINDER Administration Provider note:: Chart revewed, patient evaluated, preoccupied with panic attacks mmanagement, asking for medication intervention. Haldol 5mg p[o stat. Bevadryl 50mg po stat. Haldol 1mg p[o prn q4 for anxiety Mental Status Exam - Mental Status Exam Alert and Oriented to: Person Cognitive Function: Fair Patient Appearance: Unkempt Mood: Anxious Affect: Mood Congruent Patient Behavior: Talkative, Cooperative Speech Pattern: Excessive Voice Loudness: Normal Thought Process: Circumstantial, Goal Oriented Thought Disorder: Being Controlled Hallucinations: Denies Suicidal Ideation: Denies Homicidal Ideation: Denies Insight/Judgement: Fair Sleep: Difficulty falling asleep Appetite: Fair Muscle strength/Tone: Normal Gait/Station: Normal Additional Comments: Haldol 5mg p[o stat. Bevadryl 50mg po stat. Haldol 1mg p[ o prn q4 for anxiety Psychiatric Treatment Plan - Problem List (1) Anxiety Current Visit: Yes (2) Marijuana use Current Visit: Yes (3) Nicotine dependence Current Visit: Yes Qualifiers: Nicotine product type: cigarettes Substance use status: uncomplicated Qualified Code(s): F17.210 - Nicotine dependence, cigarettes, uncomplicated (4) Opioid dependence with withdrawal Current Visit: Yes (5) Substance induced mood disorder Current Visit: Yes Initial treatment plan: Haldol 5mg p[o stat. Bevadryl 50mg po stat. Haldol 1mg p[o prn q4 for anxiety
[2018-03-02] MEDS ORDERED: HALOPERIDOL 1 MG TABLET (FP) PO PRN (13:39)
[2018-03-02] MEDS ORDERED: diphenhydrAMINE HCL 25 MG CAPSULE (FP) PO ONE (14:00)
[2018-03-02] MEDS ORDERED: HALOPERIDOL 5 MG TABLET (FP) PO ONE (14:00)
[2018-03-02] MEDS: QUEtiapine FUMARATE 50 MG TABLET PO SCH (22:24)
[2018-03-02] MEDS: SERTRALINE HCL 50 MG TABLET (FP) PO SCH (22:25)
[2018-03-02] MEDS: THIAMINE HCL 100 MG TABLET (FP) PO SCH (22:25)
[2018-03-03] MEDS ORDERED: METHADONE HCL 10 MG TABLET (FOR DETOX USE ONLY) PO ONE (10:00)
[2018-03-03] MEDS: NICOTINE 21 MG/24 HOURS TOPICAL PATCH TD SCH (10:11)
[2018-03-03] MEDS: hydrOXYzine PAMOATE 50 MG CAPSULE (FP) PO PRN ×3 (10:11→22:21)
[2018-03-03] MEDS: PRENATAL VITAMINS W/ FOLIC ACID TABLET (FP) PO SCH (10:11)
--- NOTE | 2018-03-03 11:11 | PN ---
BHS Progress Note (SOAP) Subjective: feeling better, no tremor less sweat denies pain sleep better Objective: 03/03/18 11:09 Vital Signs Temperature 97.5 F L 03/03/18 10:46 Pulse Rate 84 03/03/18 10:46 Respiratory Rate 20 03/03/18 10:46 Blood Pressure 114/78 03/03/18 10:46 O2 Sat by Pulse Oximetry (%) Laboratory Last Values WBC 6.9 K/mm3 (4.0-10.0) D 02/28/18 06:00 RBC 5.41 M/mm3 (4.00-5.60) 02/28/18 06:00 Hgb 16.4 GM/dL (11.7-16.9) D 02/28/18 06:00 Hct 46.9 % (35.4-49) 02/28/18 06:00 MCV 86.8 fl (80-96) 02/28/18 06:00 MCH 30.2 pg (25.7-33.7) 02/28/18 06:00 MCHC 34.9 g/dl (32.0-35.9) 02/28/18 06:00 RDW 13.0 % (11.9-15.9) 02/28/18 06:00 Plt Count 298 K/MM3 (134-434) 02/28/18 06:00 MPV 8.6 fl (7.5-11.1) 02/28/18 06:00 Sickle Cell Screen Negative (NEGATIVE) 02/28/18 06:00 Sodium 139 mmol/L (136-145) 02/28/18 06:00 Potassium 4.4 mmol/L (3.5-5.1) D 02/28/18 06:00 Chloride 103 mmol/L (98-107) 02/28/18 06:00 Carbon Dioxide 28 mmol/L (21-32) 02/28/18 06:00 Anion Gap 8 (8-16) 02/28/18 06:00 BUN 9 mg/dL (7-18) 02/28/18 06:00 Creatinine 1.0 mg/dL (0.7-1.3) 02/28/18 06:00 Creat Clearance w eGFR > 60 (>60) 02/28/18 06:00 Random Glucose 126 mg/dL (74-106) H D 02/28/18 06:00 Calcium 9.7 mg/dL (8.5-10.1) 02/28/18 06:00 Total Bilirubin 0.8 mg/dL (0.2-1.0) D 02/28/18 06:00 AST 16 U/L (15-37) D 02/28/18 06:00 ALT 41 U/L (12-78) D 02/28/18 06:00 Alkaline Phosphatase 116 U/L (45-117) D 02/28/18 06:00 Total Protein 7.7 g/dl (6.4-8.2) 02/28/18 06:00 Albumin 4.4 g/dl (3.4-5.0) 02/28/18 06:00 Urine Color Yellow 02/28/18 08:00 Urine Appearance Clear 02/28/18 08:00 Urine pH 6.0 (5.0-8.0) 02/28/18 08:00 Ur Specific [place] 1.030 (1.001-1.035) 02/28/18 08:00 Urine Protein Negative (NEGATIVE) 02/28/18 08:00 Urine Glucose (UA) Negative (NEGATIVE) 02/28/18 08:00 Urine Ketones Negative (NEGATIVE) 02/28/18 08:00 Urine Blood Negative (NEGATIVE) 02/28/18 08:00 Urine Nitrite Negative (NEGATIVE) 02/28/18 08:00 Urine Bilirubin Negative (<2.0 mg/dL) 02/28/18 08:00 Urine Urobilinogen 2.0 mg/dL (0.2-1.0) 02/28/18 08:00 Ur Leukocyte Esterase Negative (NEGATIVE) 02/28/18 08:00 RPR Titer Nonreactive (NONREACTIVE) 02/28/18 06:00 lab noted Assessment: 03/03/18 11:10 mild withdrawal sx Plan: medically supervised detox
[2018-03-03] MEDS: THIAMINE HCL 100 MG TABLET (FP) PO SCH (22:20)
[2018-03-03] MEDS: QUEtiapine FUMARATE 50 MG TABLET PO SCH (22:20)
[2018-03-03] MEDS: SERTRALINE HCL 50 MG TABLET (FP) PO SCH (22:20)
[2018-03-04] MEDS ORDERED: METHADONE HCL 5 MG TABLET (FOR DETOX USE ONLY) PO ONE (06:00)
[2018-03-04] MEDS: hydrOXYzine PAMOATE 50 MG CAPSULE (FP) PO PRN ×3 (06:49→15:07)
[2018-03-04] MEDS: IBUPROFEN 400 MG TABLET (FP) PO PRN (06:50)
--- NOTE | 2018-03-04 08:31 | PN ---
[facility] Progress Note (SOAP) Subjective: i'm better , going to rehab Objective: 03/04/18 08:29 Vital Signs Temperature 97.5 F L 03/04/18 06:08 Pulse Rate 78 03/04/18 06:08 Respiratory Rate 18 03/04/18 06:08 Blood Pressure 125/70 03/04/18 06:08 O2 Sat by Pulse Oximetry (%) Laboratory Tests 02/28/18 02/28/18 02/28/18 06:00 06:00 06:00 WBC 6.9 D RBC 5.41 Hgb 16.4 D Hct 46.9 MCV 86.8 MCH 30.2 MCHC 34.9 RDW 13.0 Plt Count 298 MPV 8.6 Sickle Cell Screen Negative Sodium 139 Potassium 4.4 D Chloride 103 Carbon Dioxide 28 Anion Gap 8 BUN 9 Creatinine 1.0 Creat Clearance w eGFR > 60 Random Glucose 126 H D Calcium 9.7 Total Bilirubin 0.8 D AST 16 D ALT 41 D Alkaline Phosphatase 116 D Total Protein 7.7 Albumin 4.4 Urine Color Urine Appearance Urine pH Ur Specific [place] Urine Protein Urine Glucose (UA) Urine Ketones Urine Blood Urine Nitrite Urine Bilirubin Urine Urobilinogen Ur Leukocyte Esterase RPR Titer Nonreactive 02/28/18 08:00 WBC RBC Hgb Hct MCV MCH MCHC RDW Plt Count MPV Sickle Cell Screen Sodium Potassium Chloride Carbon Dioxide Anion Gap BUN Creatinine Creat Clearance w eGFR Random Glucose Calcium Total Bilirubin AST ALT Alkaline Phosphatase Total Protein Albumin Urine Color Yellow Urine Appearance Clear Urine pH 6.0 Ur Specific [place] 1.030 Urine Protein Negative Urine Glucose (UA) Negative Urine Ketones Negative Urine Blood Negative Urine Nitrite Negative Urine Bilirubin Negative Urine Urobilinogen 2.0 Ur Leukocyte Esterase Negative RPR Titer pt aox3 in nad ambulating well Assessment: 03/04/18 08:30 withdrawal sx's improved Plan: d/c today increase fluids
--- NOTE | 2018-03-04 08:34 | DS ---
[facility] Detox Discharge Summary Admission Date: 02/27/18 Discharge Date: 03/04/18 - History Present History: Cannabis Dependence, Opioid Dependence - Physical Exam Results Vital Signs: Vital Signs Temperature 97.5 F L 03/04/18 06:08 Pulse Rate 78 03/04/18 06:08 Respiratory Rate 18 03/04/18 06:08 Blood Pressure 125/70 03/04/18 06:08 O2 Sat by Pulse Oximetry (%) - Treatment Hospital Course: Detox Protocol Followed, Detoxed Safely, Responded well, Discharged Condition Good, Rehab Referral Accepted Patient has Accepted a Rehab Referral to: [facility] - Medication Discharge Medications: Ambulatory Orders NK [No Known Home Medication] 02/27/18 - Diagnosis (1) Anxiety Current Visit: Yes Status: Chronic (2) Marijuana use Current Visit: Yes Status: Chronic (3) Nicotine dependence Current Visit: Yes Status: Chronic Qualifiers: Nicotine product type: cigarettes Substance use status: uncomplicated Qualified Code(s): F17.210 - Nicotine dependence, cigarettes, uncomplicated (4) Opioid dependence with withdrawal Current Visit: Yes Status: Chronic (5) Substance induced mood disorder Current Visit: Yes Status: Chronic - AMA Did Patient Leave Against Medical Advice: No
[2018-03-04] MEDS: PRENATAL VITAMINS W/ FOLIC ACID TABLET (FP) PO SCH (10:08)
[2018-03-04] MEDS: NICOTINE 21 MG/24 HOURS TOPICAL PATCH TD SCH (10:08)
[2018-03-04 14:37] VITALS: BP 136/83; PULSE 85; TEMP 98.4
== END 2018-03-04 16:05 | disposition home or self-care (01) | DRG 897 ==
LOC: YASAS 08:17 → Y6N 12:18
PROVIDERS: ADMIT Internal Medicine; ATTEND Internal Medicine
PROC: HZ2ZZZZ Detoxification Services for Substance Abuse Treatment (ICD-10-PCS; principal; 2018-02-27)
DX: F11.23 Opioid dependence with withdrawal (principal); F12.90 Cannabis use, unspecified, uncomplicated; F17.210 Nicotine dependence, cigarettes, uncomplicated; F41.9 Anxiety disorder, unspecified; F19.24 Other psychoactive substance dependence with psychoactive substance-induced mood disorder; G47.00 Insomnia, unspecified
CPT/HCPCS: 36415; 80053; 81003; 85027; 85660; 86593; 93005; 93010; J0475